=== PATIENT | female | born 1965 | race Caucasian/White ===

== ENCOUNTER 2019-03-16 08:04 | Inpatient (IN) | payer MEDICAID ==
[2019-03-13 20:00] VITALS: BP 116/67
[2019-03-16] VITALS (15 sets, daily range): BP systolic 93–139; BP diastolic 49–88; BMI 29.9
[~2019-03-16] VITALS: Ht 157.5 cm; Wt 76.4 kg
[2019-03-16 08:34] LABS: BASOPHILS 0.1 % (0-2); EOSINOPHILS 0.6 % (0-7); HEMATOCRIT 39.3 % (36.0-48.0); HEMOGLOBIN 12.9 g/dL (12-16); IMMATURE GRANULOCYTES 0.4 % (0-5); LYMPHOCYTES 27.4 % (15-50); MCH 30.1 pg (26.0-34.0); MCHC 32.8 g/dL (31.0-37.0); MCV 91.6 fL (80.0-100.0); MEAN PLATELET VOLUME 10.7 fL (7.4-10.4); MONOCYTES 7.4 % (2-11); NEUTROPHILS 64.1 % (40-80); PLATELET COUNT 475 10x3/uL (130-400); RBC 4.29 10x6/uL (4.00-5.40); RDW 16.6 % (11.5-14.5)
[2019-03-16 08:43] LABS: APTT 23.6 SECONDS (22.8-39.4); INR 1.2 (0.85-1.17); PROTIME 14.6 SECONDS (11.6-15.0)
[2019-03-16 08:44] LABS: CALC OSMOLALITY 292 mosm/kg (275-300); CALCIUM 9.4 mg/dL (8.5-10.1); CARBON DIOXIDE 16.6 mmol/L (21.0-32.0); CHLORIDE - SERUM 105 mmol/L (98-107); CREATININE - SERUM 1.7 mg/dL (0.6-1.3); GLUCOSE 278 mg/dL (74-106); SODIUM 142 mmol/L (136-145); UREA NITROGEN 13 mg/dL (7-18); eGFR NON AFRICAN AMERICAN 34 mL/min (90-120)
[2019-03-16] MEDS ORDERED: PHENERGAN (08:54)
[2019-03-16] MEDS ORDERED: HYDROCODONE (08:54)
[2019-03-16] MEDS ORDERED: BACLOFEN (08:55)
[2019-03-16] MEDS ORDERED: LISINOPRIL (08:55)
[2019-03-16] MEDS ORDERED: HCTZ (08:55)
[2019-03-16] MEDS ORDERED: OLANZAPINE (08:56)
[2019-03-16] MEDS ORDERED: DOXYCYCLINE (08:56)
[2019-03-16] MEDS ORDERED: CYCLOBENZAPRINE (08:56)
[2019-03-16 09:00] LABS: ALBUMIN 3.4 g/dL (3.4-5.0); ALKALINE PHOSPHATASE 92 U/L (46-116); ALT (SGPT) 42 U/L (10-68); BILIRUBIN - TOTAL 0.46 mg/dL (0.2-1.3); CKMB 1.1 U/L (0.0-3.6); CREATINE KINASE 48 UL (21-215); MAGNESIUM - SERUM 2.1 mg/dL (1.8-2.4); PROTEIN - SERUM 8.2 g/dL (6.4-8.2); THYROID STIMULATING HORMONE 2.12 uIU/mL (0.36-3.74); TROPONIN-I < 0.017 ng/mL (0.000-0.060)
[2019-03-16 09:08] LABS: APPEARANCE CLEAR (CLEAR); COLOR YELLOW (YELLOW); SPECIFIC GRAVITY 1.015 (1.005-1.020)
[2019-03-16 09:09] LABS: BILIRUBIN NEGATIVE (NEGATIVE); GLUCOSE NEGATIVE (NEGATIVE); KETONE NEGATIVE (NEGATIVE); NITRITE NEGATIVE (NEGATIVE); PROTEIN NEGATIVE (NEGATIVE); UROBILINOGEN NORMAL (NORMAL)
[2019-03-16 09:18] LABS: UDS - AMPHET NEGATIVE QUAL (NEGATIVE); UDS - BARB NEGATIVE QUAL (NEGATIVE); UDS - BENZO NEGATIVE QUAL (NEGATIVE); UDS - COCAINE NEGATIVE QUAL (NEGATIVE); UDS - OPIATE POSITIVE QUAL (NEGATIVE); UDS - PCP NEGATIVE QUAL (NEGATIVE); UDS - THC NEGATIVE QUAL (NEGATIVE)
--- NOTE | 2019-03-16 12:10 | NUR ---
PT ON VENT. UNABLE TO ANSWER HISTORY. NO FAMILY HERE AT THIS TIME. PT HAS OGT UP TO LIS. IV TO RIGHT HAND WITH PROPOFOL. PT HAS MORRIS CATHETER. ASSESSMENT DONE. SKIN ABNORMALITIES DOCUMENTED. VSS. WILL CONTINUE TO MONITOR.
--- NOTE | 2019-03-16 12:30 | NUR ---
DR DELANEY NOTIFIED OF PT'S ARRIVAL TO 2307.
--- NOTE | 2019-03-16 13:32 | NUR ---
PT'S IS TO ANSWER SOME QUESTIONS. HE STATES THAT " HASN'T TAKEN ANY PRESCRIBED MEDICATIONS SINCE D/C FROM [facility] ON SATURDAY (03/13/19)." STATES THAT HE THINKS IT'S POSSIBLE PT HAS STARTED USING HEROIN. SAID THAT SHE WAS BOTH HOMICIDAL AND SUICIDAL AND THAT SHE "HAD A LIST OF PEOPLE SHE WANTED TO KILL." 'S NAME IS CAMILLA ([phone]).
--- NOTE | 2019-03-16 15:45 | NUR ---
SHAWN HERNANDEZ, ROUNDING ON PT. TRACK EPSTEIN TO RIGHT ARM NOTED. VSS. WILL CONTINUE TO MONITOR.
--- NOTE | 2019-03-16 17:48 | NUR ---
PT REPOSITIONED. VSS. WILL CONTINUE TO MONITOR.
[2019-03-17] VITALS (26 sets, daily range): BP systolic 88–139; BP diastolic 44–90; Ht 157.5 cm; Wt 76.4 kg
[2019-03-17 04:57] LABS: BASOPHILS 0.3 % (0-2); EOSINOPHILS 0.5 % (0-7); HEMATOCRIT 34.6 % (36.0-48.0); HEMOGLOBIN 11.2 g/dL (12-16); IMMATURE GRANULOCYTES 0.3 % (0-5); LYMPHOCYTES 24.6 % (15-50); MCH 29.2 pg (26.0-34.0); MCHC 32.4 g/dL (31.0-37.0); MCV 90.3 fL (80.0-100.0); MEAN PLATELET VOLUME 11.1 fL (7.4-10.4); MONOCYTES 7.5 % (2-11); NEUTROPHILS 66.8 % (40-80); RBC 3.83 10x6/uL (4.00-5.40); RDW 16.9 % (11.5-14.5)
[2019-03-17 05:04] LABS: PLATELET COUNT 269 10x3/uL (130-400); WBC 11.3 10x3/uL (4.8-10.8)
[2019-03-17 05:20] LABS: ALBUMIN 3.1 g/dL (3.4-5.0); BILIRUBIN - TOTAL 0.5 mg/dL (0.2-1.3)
[2019-03-17 05:30] LABS: CREATININE - SERUM 1.1 mg/dL (0.6-1.3)
[2019-03-17 05:31] LABS: ANION GAP 16.1 mmol/L (8-16); CARBON DIOXIDE 24.5 mmol/L (21.0-32.0); POTASSIUM - SERUM 2.6 mmol/L (3.5-5.1)
--- NOTE | 2019-03-17 07:00 | NUR ---
PT RESTING IN BED. NO VISIBLE SIGNS OF DISTRESS NOTED. SHIFT ASSESSMENT COMPLETED. WILL CONTINUE TO MONITOR
--- NOTE | 2019-03-17 09:00 | NUR ---
DR DELANEY ON UNIT. ORDER RECEIVED TO DECREASE SEDATION. WILL CONTINUE TO MONITOR
--- NOTE | 2019-03-17 10:30 | NUR ---
PT RESTING IN BED. DR DELANEY DID NOT WANT TO TRY PSV TODAY. PT WAS TACHYCARDIC. SEDATION INCREASED. WILL CONTINUE TO MONITOR
--- NOTE | 2019-03-17 11:00 | NUR ---
PT RESTING IN BED. NO ACUTE SIGNS OF DISTRESS NOTED. REASSESSMENT COMPLETED. WILL CONTINUE TO MONITOR
--- NOTE | 2019-03-17 13:00 | NUR ---
PT RESTING IN BED. FAMILY AT BEDSIDE. PT ON PSV TRIAL CURRENTLY. TOLERATING WELL. WILL CONITNUE TO MONITOR
--- NOTE | 2019-03-17 15:00 | NUR ---
PT RESTING IN BED. NO VISIBLE SIGNS OF DISTRESS NOTED. REASSESSMENT COMPLETED. WILL CONTINUE TO MONITOR
--- NOTE | 2019-03-17 17:00 | NUR ---
PT RESTING IN BED COMFORTABLY. NO VISIBLE SIGNS OF DISTRESS NOTED AT THIS TIME. WILL CONTINUE TO MONITOR
[2019-03-18] VITALS (17 sets, daily range): BP systolic 87–150; BP diastolic 46–78
--- NOTE | 2019-03-18 04:12 | NUR ---
MORNING ABG pH 7.45, CO2 27, PO2 100 ON 35% 5 OF PEEP. CHANGED RATE FROM 15 TO 12.
[2019-03-18 06:13] LABS: ANION GAP 13.8 mmol/L (8-16); CALCIUM 8.5 mg/dL (8.5-10.1); CARBON DIOXIDE 22.8 mmol/L (21.0-32.0)
[2019-03-18 06:15] LABS: POTASSIUM - SERUM 3.6 mmol/L (3.5-5.1)
[2019-03-18 06:19] LABS: ALBUMIN 2.6 g/dL (3.4-5.0); BILIRUBIN - TOTAL 0.34 mg/dL (0.2-1.3); PROTEIN - SERUM 5.9 g/dL (6.4-8.2)
--- NOTE | 2019-03-18 07:00 | NUR ---
BEDSIDE REPORT RECEIVED. SHIFT ASSESSMENT COMPLETED PER FLOWSHEET, SEE FLOWSHEET FOR INFORMATION. NO ACUTE NEEDS OR DISTRESS NOTED AT THIS TIME. WILL CONT TO MONITOR.
--- NOTE | 2019-03-18 09:00 | NUR ---
PT FAMILY CALLED AND UPDATE GIVEN. NO ACUTE NEEDS OR DISTRESS NOTED AT THIS TIME. VSS. WILL CONT TO MONITOR.
--- NOTE | 2019-03-18 10:37 | NUR ---
PT EXTUBATED BY RT. PT USING YANKER FOR ORAL SUCTIONIN, EDUCCATION GIVEN TO PT BY NURSE AND RT REGARDING USING YANKER. PT DEMONSTRATED CORRECT USAGE OF YANKER. PT ON NC @ 2.5 L. WILL CONT TO MONITOR.
--- NOTE | 2019-03-18 11:00 | NUR ---
REASSESSMENT COMPLETED PER FLOWSHEET, SEE FLOWSHEET FOR INFORMATION. INFORMED PT TAHT TALKING CAN HURT THE THROAT AND IF NEED PRESS THE CALL BUTTON AND WRITE WHATEVER IS NEEDED. PT NODS HEAD YES IN UNDERSTANDING. WILL CONT TO MONITOR. NO ACUTE NEEDS OR DISTRESS NOTED AT THIS TIME. VSS.
--- NOTE | 2019-03-18 13:00 | NUR ---
PT STATING "I'M LEAVING TODAY, I'M NOT STAYING HERE" EXPLAINED TO PT ABOUT RISKS OF DISCHARGING IMMEDIATELY AFTER EXTUBATION. PT DOES NOT ACCEPT TEACHING. WILL CONT TO MONITOR.
--- NOTE | 2019-03-18 13:19 | NUR ---
Nutrition follow-up: Pt extubated today Still NPO Labs reviewed RDN following.
--- NOTE | 2019-03-18 14:00 | NUR ---
PT REFUSED IV MEDICATIONS AND ALL VITAL SIGNS. WILL CONT TO MONITOR.
--- NOTE | 2019-03-18 14:40 | NUR ---
DR. BROWN NOTIFIED AND SITTER ORDERED. SITTER AT BEDSIDE. NOTIFIED CHARGE NURSE AND ATTENDING IN REGARDS TO ASSESSMENT FINDINGS. RESOURCES GIVEN TO PATIENT AND SAFETY PLAN INITIATED. SHE DENIES OVERDOSING OR WANTING TO KILL HERSELF. SHE SAYS I WANT TO GO HOME.
--- NOTE | 2019-03-18 15:00 | NUR ---
REASSESSMENT COMPLETED PER FLOWSHEET, SEE FLOWSHEET FOR INFORMATION. PT AGREED TO LET ME CHECK HER BLOOD SUGAR. WILL CONT TO MARGO.
--- NOTE | 2019-03-18 17:00 | NUR ---
SITTER AT BEDSIDE WATCHING PT. NO ACUTE NEEDS OR DISTRESS NOTED AT THIS TIME. WILL CONT TO MONITOR.
--- NOTE | 2019-03-18 19:20 | NUR ---
SHIFT ASSESSMENT COMPLETE. PATIENT IS AGGITATED AND STATES SHE IS GOING HOME TOMORROW. PATIENT VOICE IS VERY HORSE AND THROAT SORE. CALL LIGHT WITHIN REACH, BED IN LOW POSITION, AND SITTER AT BEDSIDE.
--- NOTE | 2019-03-18 20:40 | NUR ---
PATIENT REQUESTING HER ROUTINE MEDS THAT SHE TAKES AT HOME. EXPLAINED TO PATIENT THAT THEY WOULD NOT ORDER HER MEDS THAT SHE OVERDOSED ON. EXPLAINED TO PATIENT THAT I COULD RESTART HER PRECIDEX AND IT WOULD HELP HER RELAX. PATIENT AGREED TO HAVE IV RESTARTED AND PRECIDEX STARTED. IV RESTARTED WITH D5 1/2 NS AT 100 ML/HR AND PRECIDEX AT 0.1MCG/KG/HR PER MD ORDER. WILL CONTINUE TO MONITOR PATIENT.
--- NOTE | 2019-03-18 20:56 | NUR ---
PATIENT UP TO BSC VOIDED APPROX 300ML OF DELROY URINE. PATIENT COOPERATIVE AT THIS TIME AND THANKFUL FOR HELP. CALL LIGHT WITHIN REACH, BED IN LOW POSITION. SITTER AT BEDSIDE.
--- NOTE | 2019-03-18 21:37 | NUR ---
PATIENT WANTING SOMETHING TO DRINK. EXPLAINED TO PATIENT THAT SHE DID NOT PASS HER SWALLOW EVAL AND WILL REPEAT SWALLOW EVAL IN AM. EXPLAINED THAT SHE COULD ASPIRATE IF NOT SWALLOWING WELL. PATIENT STATES IT WAS FINE SHE IS GOING HOME IN THE AM.
--- NOTE | 2019-03-18 23:00 | NUR ---
REASSESSMENT COMPLETE. PATIENT DENIES ANY NEEDS AT THIS TIME. CALL LIGHT WITHIN REACH, BED IN LOW POSITION. PATIENT HAS SITTER AT BEDSIDE.
[2019-03-19] VITALS (21 sets, daily range): BP systolic 96–182; BP diastolic 52–112
--- NOTE | 2019-03-19 01:00 | NUR ---
PATIENT IS SLEEPING AT THIS TIME, NO CHANGES NOTED. CALL LIGHT WITHIN REACH, BED IN LOW POSITION.
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
--- NOTE | 2019-03-19 10:55 | NUR ---
DR LONG AT THE PTS BEDSIDE. OK TO TRANSFER TO THE FLOOR. WAITING FOR DR HARMAN TO EVALUATE.
--- NOTE | 2019-03-19 13:47 | NUR ---
VSS AT THIS TIME. MEAL TRAY RECEIVED FROM THE KITCH AND IT WAS GIVEN TO THE PT. WILL CONT POC.
--- NOTE | 2019-03-19 15:45 | NUR ---
DR GIBSON THE PTS BEDSIDE. NEEDING INPATIENT PYCHIATRIC PLACEMENT. DR LONG NOTIFIED. OK TO PROCED FOR PLACEMENT. CASEMANAGMENT NOTIFIED.
--- NOTE | 2019-03-19 16:27 | NUR ---
pt denies any si. pt stated she did not try to hurt herself and she doesn't know how too many pills got into her system. She stated, "I only took my normal my normal dose." coping skills reviewed with the pt. pt verbalized understanding. sitter at bedside for suicide watch.
--- NOTE | 2019-03-19 16:48 | NUR ---
TRANSFER CENTER REQURINING A TEST. DR JOY NOTIFIED.
[2019-03-19 17:00] LABS: HCG SERUM NEGATIVE (NEGATIVE)
--- NOTE | 2019-03-19 17:00 | NUR ---
OFFERED PT DINNER TRAY. PT REFUSED STATING THAT SHE WASNT HUNGRY. PT DENIES NEEDS AT THIS TIME. WILL CONT POC.
--- NOTE | 2019-03-19 18:16 | NUR ---
SPOKE WITH THE TRANSFER CENTER. SPOKE WITH DR ROSARIO VIA TRANSFER CENTER. SHE ASKED IF THE PT IS WILLING TO GO. SPOKE WITH THE PT AND THE PT STATED THAT SHE IS WILLING TO GO.
--- NOTE | 2019-03-19 19:00 | NUR ---
ASSESSMENT COMPLETED. INDEPENDENT WITH REPOSITIONING. DENIES ANY NEEDS. REFUSED BATH
--- NOTE | 2019-03-19 19:44 | MORECARE ---
CASE MANAGEMENT DISCHARGE SUMMARY PATIENT: GITA MEJIA UNIT: [id number] ADM DATE: 03/16/19 AGE: 53 : [birth year] SEX: F ROOM/BED: D.2307 AUTHOR: NEHA CRISOSTOMO PHYSICIAN: REFERRING PHYSICIAN: ANNALISE JOY MD DATE OF SERVICE: 03/19/19 Discharge Plan Patient Name: GITA MEJIA [facility] [facility] 1965 Planned Disposition: Psych facility Anticipated Discharge Date: Discharge Date: Expected LOS: Initial Reviewer: [email or web address] Initial Review Date: 03/16/2019 Generated: 03/19/19 8:44 pm DCPIA - Discharge Planning Initial Assessment Updated by [email or web address]: Chery Wilcox on 03/19/19 7:42 pm * Is the patient Alert and Oriented? Yes External Providers External Provider: [facility] Next Contact Date: Service Request Date: Service Type: Resolution: Reviewer: Comments: Patient Name: GITA MEJIA Page 02625 at 1944 All edits/amendments must be made on the electronic document DICTATION DATE: 03/19/191943 METAL MODEL BUILDER: CONCHA 03/19/191943 RPT#: [id number] DC DATE: STATUS: ADM IN [facility] [address] [place] [address] END OF REPORT
--- NOTE | 2019-03-19 19:52 | MORECARE ---
CASE MANAGEMENT DISCHARGE SUMMARY PATIENT: GITA MEJIA UNIT: [id number] ADM DATE: 03/16/19 AGE: 53 : [birth year] SEX: F ROOM/BED: D.2307 AUTHOR: NEHA CRISOSTOMO PHYSICIAN: REFERRING PHYSICIAN: ANNALISE JOY MD DATE OF SERVICE: 03/19/19 Discharge Plan Patient Name: GITA MEJIA Facility: [facility]:[place] : 1965 Planned Disposition: Psych facility Anticipated Discharge Date: Discharge Date: Expected LOS: Initial Reviewer: [email or web address] Initial Review Date: 03/16/2019 Generated: 03/19/19 8:51 pm Comments DCP- Discharge Planning Updated by [email or web address]: Chery Wilcox on 03/19/19 6:[address] Patient Name: GITA MEJIA Admission Status: Elective Accout number: [id number] Admission Date: 03-16-2019 : 1965 Admission Diagnosis: Attending: ROBERTO Current LOS: 3 Anticipated DC Date: Planned Disposition: Psych facility Primary Insurance: [place] [employer] [facility] Discharge Planning Comments: CM met with patient she agrees to go to inpatient psych facility. CM notified transfer center and faxed over records. CM will continue to follow and assist as needed with discharge planning needs. House Coordinator: Chery Wilcox DCPIA - Discharge Planning Initial Assessment Updated by [email or web address]: Chery Wilcox on 03/19/19 7:42 pm * Is the patient Alert and Oriented? Yes Last DP export: 03/19/19 6:44 pm Patient Name: GITA MEJIA Page [id number] at 1949 All edits/amendments must be made on the electronic document DICTATION DATE: 03/19/191950 DIALS SUPERVISOR: CONCHA 03/19/191950 RPT#: [id number] DC DATE: STATUS: ADM IN [facility] [address] [place] [address] END OF REPORT
--- NOTE | 2019-03-19 20:17 | NUR ---
REC'D NOTIFICATION FROM TRANSFER CENTER THAT PATIENT WAS ACCEPTED TO [facility] BY DR. ROSARIO.
--- NOTE | 2019-03-19 21:00 | NUR ---
LAYING IN BED, WATCHING TV, DENIES ANY NEEDS.
--- NOTE | 2019-03-19 23:26 | NUR ---
[facility] PICKED UP PATIENT TO TRANSFER TO [facility]. REPORT CALLED TO ALEX HOLMAN RN. INCLUDED HOME MEDS, CONFIRMED WITH , PER ALEX REQUEST AT [facility]. TOOK IV OUT WITH TIP INTACT PRIOR TO TRANSFER.
--- NOTE | 2019-03-20 11:10 | MORECARE ---
CASE MANAGEMENT DISCHARGE SUMMARY PATIENT: GITA MEJIA UNIT: [id number] ADM DATE: 03/16/19 AGE: 53 : 69 SEX: F ROOM/BED: D.2307 AUTHOR: NEHA CRISOSTOMO PHYSICIAN: REFERRING PHYSICIAN: ANNALISE JOY MD DATE OF SERVICE: 03/20/19 Discharge Plan Patient Name: GITA MEJIA Facility: [facility]:[place] : 1965 Planned Disposition: Psych facility Anticipated Discharge Date: Discharge Date: 03/19/2019 Expected LOS: Initial Reviewer: [email or web address] Initial Review Date: 03/16/2019 Generated: 03/20/19 12:09 pm Comments DCP- Discharge Planning Updated by [id number]: Chery Wilcox on 03/19/19 6:[address] Patient Name: GITA MEJIA Admission Status: Elective Accout number: [id number] Admission Date: 03-16-2019 : 1965 Admission Diagnosis: Attending: ROBERTO Current LOS: 3 Anticipated DC Date: Planned Disposition: Psych facility Primary Insurance: [place] [employer] [facility] Discharge Planning Comments: CM met with patient she agrees to go to inpatient psych facility. CM notified transfer center and faxed over records. CM will continue to follow and assist as needed with discharge planning needs. Alteration Workroom Supervisor: Chery Wilcox DCPIA - Discharge Planning Initial Assessment Updated by [email or web address]: Chery Wilcox on 03/19/19 7:42 pm * Is the patient Alert and Oriented? Yes Last DP export: 03/19/19 6:52 pm Patient Name: GITA MEJIA Page [id number] at 1110 All edits/amendments must be made on the electronic document DICTATION DATE: 03/20/191108 MATCHBOOK MAKER: CONCHA 03/20/19 110 RPT#: [id number] DC DATE:03/19/19 STATUS: DIS IN [facility] [address] [place] [address] END OF REPORT
--- NOTE | 2019-03-20 15:48 | CN ---
PATIENT NAME:GITA MEJIA MEDICAL RECORD: [id number] : [birth year] LOCATION:[id number] ADMIT DATE: 03/16/19 ACCOUNT: [id number] CONSULTING PHYSICIAN: PAULO BROWN MD REFERRING PHYSICIAN: ANNALISE JOY MD DATE OF CONSULTATION: 03/19/2019 Psychiatric Consultation IDENTIFYING DATA: The patient is 53 years old and she is admitted to the hospital on a voluntary basis. CHIEF COMPLAINT: Overdose. HISTORY OF PRESENT ILLNESS: The patient presented to the hospital via EMS. At that time, she was combative and had taken an overdose. She required ventilator support and has recently been extubated. She says she does not know what happened, but says she did not take an overdose on purpose. The patient's says that she took an overdose of narcotics recently and told another hospital that it was accidental and that they released her. He also says that she has made threats to harm herself and others which she is now denying. The patient does endorse a lot of neurovegetative depressive symptoms and a number of interpersonal stressors, but she denies that she would seek to harm herself or others. MENTAL STATUS EXAMINATION: The patient is awake, alert and oriented to person and place as well as somewhat to time and situation. Her mood is depressed. Her affect is constricted. Thought processes are generally goal directed. Memory, concentration, and abstraction abilities are moderately impaired. She again denies any acute symptoms of dangerousness to me. ASSESSMENT: 1. Status post overdose. 2. Major depression. PLAN: The patient clearly is depressed, given her recent history of multiple overdoses and the information from the , I can only conclude that she is an acute danger to herself and I will insist and if a court order is necessary we will force her into inpatient psychiatric care. At this point, she is willing to go on a voluntary basis, although she is not happy about it. I am going to start her on antidepressant medication and would recommend confinement to an inpatient psychiatric facility as soon as it is reasonably practical to do so from both a logistical and medical stability standpoint. Until then, she should remain with a sitter and be on suicide precautions. TRANSINT:[id number] Voice Confirmation ID: [id number] DOCUMENT ID: [id number] CONSULT REPORT [id number] ROBERTOPAULO GONZALES MD at 1548 CC: [id number] DICTATION DATE: 03/19/19 1626 CARTON MAKER: 03/20/19 0153 DIS IN 03/19/19 [facility] [address] [place] [address]
== END 2019-03-19 23:19 | DRG 917 ==
LOC: D.ER 08:04 → D.ICU 09:46
PROVIDERS: Family Medicine; ADMIT Family Medicine; ATTEND Family Medicine
PROC: 5A1945Z Respiratory Ventilation, 24-96 Consecutive Hours (ICD-10-PCS; principal; 2019-03-16)
PROC: 0BH17EZ Insertion of Endotracheal Airway into Trachea, Via Natural or Artificial Opening (ICD-10-PCS; 2019-03-16)
DX: T50.901A Poisoning by unspecified drugs, medicaments and biological substances, accidental (unintentional), initial encounter (principal); J96.00 Acute respiratory failure, unspecified whether with hypoxia or hypercapnia; G92 Toxic encephalopathy; E87.3 Alkalosis; N17.9 Acute kidney failure, unspecified; E87.6 Hypokalemia; R73.9 Hyperglycemia, unspecified; D72.829 Elevated white blood cell count, unspecified; D47.3 Essential (hemorrhagic) thrombocythemia; I10 Essential (primary) hypertension; F29 Unspecified psychosis not due to a substance or known physiological condition; F32.9 Major depressive disorder, single episode, unspecified